=== PATIENT | female | born 1980 | race Caucasian/White ===

== ENCOUNTER 2017-02-11 06:11 | Inpatient (IN) | payer OTHER ==
[~2017-02-11] VITALS: Ht 161.3 cm; Wt 63.0 kg
[2017-02-11] MEDS ORDERED: Lactated Ringer's 1,000 ML IV PRN (06:39)
[2017-02-11] MEDS ORDERED: Oxytocin 10 Unit/mL Inj IM PRN (06:40)
[2017-02-11] MEDS ORDERED: Oxytocin 30 Units/500 mL LR 30 UNITS in IV Premix 1 EACH IV PRN (06:40)
[2017-02-11] MEDS ORDERED: Carboprost 250 mCg/mL Inj IM PRN (06:40)
[2017-02-11] MEDS ORDERED: Hemorrhage Kit, Post Partum XX ONE (06:40)
[2017-02-11] MEDS ORDERED: Sodium Chloride LOK Flush 10 mL Syringe IVFLUSH PRN ×2 (06:40→21:20)
[2017-02-11] MEDS ORDERED: Methylergonovine 0.2 mg/mL Inj IM PRN (06:40)
[2017-02-11] MEDS ORDERED: Ondansetron 2 mg/mL 2 mL Inj IVPUSH PRN ×2 (06:40→21:40)
[2017-02-11] MEDS ORDERED: fentaNYL-PF 50 mCg/mL 2 mL Inj IVPUSH PRN (06:40)
[2017-02-11] MEDS ORDERED: [UNRECOGNIZED DRUG - OTHER] (07:53)
[2017-02-11] MEDS ORDERED: PREN1TAB87 PO (07:53)
[2017-02-11 09:12] LABS: Mean Corpuscular Hemoglobin 30.7 pg (27.0-35.0); Mean Corpuscular Volume 88.8 fL (81-100)
--- NOTE | 2017-02-11 11:28 | HP ---
[address] [address] HISTORY AND PHYSICAL PATIENT: MARGARITA ALMAZAN : 1980 MR#: [id number] ADMIT: 02/11/2017 JOB ID: [id number] CHIEF COMPLAINT: Increasing contractions at term. HISTORY OF PRESENT ILLNESS: A 36-year-old, 1 para 0, with an EDC of February 08, 2017, based on a 10 week 2 day ultrasound done July 15, 2016. Presents at 40-3/7 weeks gestation with increasing contractions. History is obtained from the patient and her . She reports around two o'clock this morning she had some increased contractions when up to urinate around four o'clock. They promptly became stronger, occurring every 3-5 minutes and have persisted. She presented to the Center around 6 a.m., was found to be 4 cm, gotten in the Jacuzzi, has felt like contractions have let up a little bit, but is feeling no more in the past few minutes. Her has been tracking them. They are occurring every 3-4 minutes. She has had no bloody show. No mucus and no leakage of fluid. has been complicated only by Rh negative status and an echogenic focus in the right ventricle by ultrasound. ALLERGIES: None known. CURRENT MEDICATIONS: vitamins 1 tablet daily. HEALTHCARE MAINTENANCE: The patient had received a flu vaccine in July of this year, and a Tdap in December of this year. SOCIAL HISTORY: She is . Nonsmoker. Does not drink alcohol during . Has previously denied recreational drug use. Has worked as a virtual customer assistant. PAST GYNECOLOGIC HISTORY: 1, para 0. FAMILY HISTORY: Noncontributory for congenital or defects. PAST MEDICAL HISTORY: She has had an abnormal Pap in 2007, and a left elbow fracture as a child. She had wisdom tooth extraction in the past. LABORATORIES: Blood type O negative, rubella immune, serology nonreactive. Hepatitis B surface antigen, HIV test negative. Antibody screen negative at 27 weeks. Hematocrit 37.5 at 27 weeks. An A1c at the onset of was 5.1. Her gonorrhea and Chlamydia cultures were negative. Pap smear was normal as well. Urine culture showed no growth. A 27-week glucose tolerance test showed a fasting blood sugar 72, a 1 hour of 88, a 2 hour of 78. She declined risk testing. She is GBS negative, screened January 10, 2017. PHYSICAL EXAMINATION: She is afebrile. Blood pressure 101/63, pulse 68, at 8:13 this morning. She is a gravid woman, uncomfortable with contractions. Otherwise smiling in between. Vaginal exam is not repeated as she is in the tub, but was recently performed by nursing, showing her 4 cm dilated, 75% effaced, -3 station. heart [facility] shows a baseline in the 130s, with numerous accelerations, at least 15 beats by 15 seconds, and no concerning decelerations. There is excellent variability consistent with a category 1 tracing. Tocometer does not hand picker particularly regularly but seems to show jiik-so-[id number] contractions every 3-5 minutes. LABORATORY VALUES: Show white count 19.9, hematocrit 41.9, platelets 342. ASSESSMENT: 1. Early labor at term. 2. Group B Strep negative. 3. Blood type O negative. 4. Echogenic focus on ultrasounds. PLAN: The [facility]. Does not wish to have additional pain medication. She does request something for heartburn, and I have written for Tums and ranitidine. She would like to avoid interventions and so at present the plan is expectant management. If she continues to not make clinical progress, consider option of oxytocin and/or amniotomy. KEITH
[2017-02-11] MEDS ORDERED: Lactated Ringer's 500 ML IV ONE (21:38)
--- NOTE | 2017-02-11 21:38 | PCM.HPANE ---
Patient Data Date of Service: Feb 11, 2017 Surgeon Admitting Provider:Juanjose Pal MD Attending Provider:Juanjose Pal MD Primary Care Physician:Juanjose Pal MD Other Provider:Kayla Han Anesthesia Reason for Visit Term Labor TERM LABOR Ht/WT & BMI Body Mass Index Allergies Coded Allergies: No Known Allergies (Unverified , 02/11/17) Past Anesthesia History Anesthesia History: Denies:: Abnormal Airway Diabetes History Hx Diabetes?: No MRSA MRSA: No Medications Hypertension Medication: No Home Meds Incl Beta Leticia: No Reported Medications [antacid of choice] No Conflict Check PRN For Epigastric Distress 02/11/17 Vit W-Ca,Fe,FA(<1 mg) ( Vitamins)1 Each Tablet1 Each PO DAILY 02/11/17 History History of ENT Problems?: No HEENT History: Denies:: Abnormal Airway Denture Type: None Teeth Condition: Within Normal Limits Hx of Heart Problems?: No Cardiovascular History: Denies:: Peripheral Vascular Hx of Respiratory Problem?: No Respiratory History: Denies:: Asthma Hx Neurologic Problems?: No Neurological History: Denies:: Headaches Hx of GI Problems?: No Hx of Problems?: No HX of Peritoneal Dialysis: No Female Hx: Positive for:: Currently Hx Musculoskeletal Problems?: No Hx of Psycho/Social Problems?: No Hx Surgeries?: No Hx Any Other Health Problems?: No Smoking Status: Never Smoker Stop/Bang Treated for Sleep Apnea?: No Do You Have a CPAP Machine?: No S-Snoring: Do You Snore Loudly: No T-Tired: feel tired, fatigued: No O-Obsered: Observed not breath: No P-Blood Pressure: treated: No B- Body Mass Index > 35 kg/m2: No A- Age over 50: No N- Neck Large Circumference: No G- Gender Male: No [id number] Risk Assessment: Low Risk, <3 Yes Risk Assessment Category Category 1A: Patient has history of documented sleep apnea, and HAS NOT received any narcotic, sedative or anesthesia administration during this stay. Category 1B: Patient has history of documented sleep apnea, and HAS received any narcotic , sedative or anesthesia administration during this stay Category 2: Patient has SUSPECTED Obstructive Sleep Apnea, and HAS received any narcotic , sedative or anesthesia administration during this stay. Category 3: Patient has SUSPECTED Obstructive Sleep Apnea and HAS NOT received narcotic, sedative or anesthesia administration during this stay. Category 4: Outpatient in Procedural Areas with known sleep apnea or who screen positive for High Risk via the STOP/BANG questionnaire. Exam Exam General Appearance: Alert, Oriented X3 HEENT/AIRWAY: MP 1 Lungs: Clear to Auscultation Heart: Exam Unremarkable Meds/Labs/Diagnostics Admission Meds Current Medications Famotidine (Pepcid) 20 mg ONCE ONCE PO Last administered on 02/11/17t 10:43; Start 02/11/17 at 10:05; Stop 02/11/17 at 10:06; Status DC Labs Test 02/11/17 08:55 White Blood Count 19.9th/mm3 (3.8-10.1) Red Blood Count 4.72mil/mm3 (3.90-5.20) Hemoglobin 14.5g/dL (12.0-15.6) Hematocrit 41.9% (35.0-46.0) Mean Corpuscular Volume 88.8fL (81-100) Mean Corpuscular Hemoglobin 30.7pg (27.0-35.0) Mean Corpuscular Hemoglobin Concent 34.6% (32.0-37.0) Red Cell Distribution Width 13.3% (12.3-15.4) Platelet Count 342bil/L (150-400) Plan Impression Patient chart reviewed, patient interviewed and anesthestic plan with risks, benefits, and alternatives discussed, and informed consent obtained. NPO per Anesth. Guidelines: Yes ASA Physical Status: ASA1 Normal Healthy Anesthetic Plan: Epidural Bene/Risks/Altern/Consents: Yes HP Complete Prior to Induction: Yes Servando Nicole MD Feb 11, 2017 21:38
[2017-02-11] MEDS ORDERED: EPHEDrine Sulfate 50 mg/mL Inj IVPUSH PRN (21:40)
[2017-02-11] MEDS ORDERED: Atropine 1 mg/10 mL (Code) Syringe IVPUSH PRN (21:40)
--- NOTE | 2017-02-11 21:57 | PROG NOTE ---
[address] [address] PROGRESS NOTE PATIENT: MARGARITA ALMAZAN : 1980 MR#: [id number] ADMIT: 02/11/2017 JOB ID: [id number] DATE: 02/11/2017 PROGRESS NOTE: I returned around 9 p.m. and re-examined the patient. She is having what she reports are stronger contractions, although they are still fairly spaced out, about every 5-6 minutes. PHYSICAL EXAMINATION: Last vitals show a temperature of 98.1 Fahrenheit, heart rate 93, respirations 18, blood pressure 116/62, O2 saturation 99% on room air. She is a very tired-appearing laboring woman. Cervical examination shows her to be 6 cm, -1 station, 85% effaced, vertex position. Palpable but not bulging membranes noted. heart tracing shows a baseline in the 130s to 140s with continued accelerations, category 1 tracing. Tocometer shows contractions every 5-6 minutes, sometimes clustering more frequent. They palpate as moderate. ASSESSMENT: 1. Gravid, at term. 2. Group B Streptococcus negative. 3. Entering active labor. She has had a fairly slow prodromal pattern today with fairly infrequent contractions. However, she has dilated to 6 cm. PLAN: Discussed options. This patient reports she is really feeling exhausted, having been up since 2 o'clock this morning. After discussing risks and benefits and having time to evaluate options with her partner, she decided on an epidural. Anesthesia was contacted for epidural anesthesia. Discussed placing this and allowing her to rest three to four hours and, if not making further cervical change, augmenting with oxytocin. This was discussed with Dr. Mata, body shop floorperson for [employer]. The patient declines amniotomy and augmentation earlier today and continues to prefer to keep membranes intact as long as possible. If she makes clinical progress without augmentation, we will simply allow her to labor with the epidural. Plan, options, risks and benefits of each approach were reviewed with patient and her . KEITH
[2017-02-12] MEDS ORDERED: Sodium Chloride LOK Flush 10 mL Syringe IVFLUSH SCH (00:30)
[2017-02-12] MEDS ORDERED: Oxytocin 30 Units/500 mL LR 30 UNITS in IV Premix 1 EACH IV PRN ×2 (02:00→13:45)
[2017-02-12] MEDS: fentaNYL 2 mCg/mL-Bupiv 0.125% 100 ML EPIDURAL SCH ×2 (05:38→11:49)
[2017-02-12] MEDS: Lactated Ringer's 1,000 ML IV SCH ×2 (05:39→12:22)
[2017-02-12] MEDS ORDERED: Lactated Ringer's 1,000 ML IV SCH (13:44)
[2017-02-12] MEDS ORDERED: Oxytocin 10 Unit/mL Inj IM PRN (13:45)
[2017-02-12] MEDS ORDERED: Methylergonovine 0.2 mg/mL Inj IM PRN (13:45)
[2017-02-12] MEDS ORDERED: Hemorrhage Kit, Post Partum XX ONE (13:45)
[2017-02-12] MEDS ORDERED: Witch Hazel-Glycerin Pads TOPICAL PRN (13:45)
[2017-02-12] MEDS ORDERED: HYDROcodone-APAP 5-325 mg Tablet PO PRN (13:45)
[2017-02-12] MEDS ORDERED: Benzocaine (Dermoplast) 20% 60 Gm Spray TOPICAL PRN (13:45)
[2017-02-12] MEDS ORDERED: Carboprost 250 mCg/mL Inj IM PRN (13:45)
[2017-02-12] MEDS ORDERED: LANOlin HPA 7 Gm Ointment TOPICAL PRN (13:45)
--- NOTE | 2017-02-12 14:16 | OP ---
[address] [address] OPERATIVE REPORT PATIENT: MARGARITA ALMAZAN : 1980 MR#: [id number] ADMIT: 02/11/2017 JOB ID: [id number] DELIVERY NOTE: DATE OF DELIVERY: 02/12/2017 DELIVERY POSITION: IMELDA. ANESTHESIA: Epidural. APGARS: 8 and 9 DELIVERY WEIGHT: 2964 g (6 pounds 9 ounces) UMBILICAL CORD: Three-vessel cord normal length and appearance. PLACENTA: Normal appearance central cord insertion. No evidence of retained fragments. ESTIMATED BLOOD LOSS: 200 cc. LACERATIONS: First-degree perineal. COMPLICATIONS: See narrative below. The patient was found to be complete with increasing rectal pressure. Membranes were ruptured with return of clear fluid. Immediately there afterwards there was a heart rate deceleration which responded to resuscitative measures. The patient was allowed to have passive descent and then began pushing. Throughout pushing heart rate variables were noted, about hour 2 of pushing these seemed to be more prolonged and there was a question of whether or not there were late decelerations noted. As pushing progressed the patient did make descent of the head, however she is becoming more fatigued and the decelerations seen to be more repetitive. Discussed the option of a vacuum, at that point, the skull was +1 to +2 position the latter with pushing. I contacted Dr. Pool on-call for [employer] and asked her to come do a consultation. She discussed the option of a vacuum which, if unsuccessful, would then result in section. Patient strongly desired to avoid the latter. While all this discussion was occurring, patient was able to push the head completely down to +3 station. [employer] and Pediatrics was personally present in the room in anticipation of potential complications either during delivery or for the fetus afterwards. Head delivered. No nuchal cord was identified. Shoulders delivered without difficulty. was handed up to mother and nursing for additional stimulation, but almost immediately had cry and good tone and color. Cord was clamped after 2 minute delay. Cord blood collected and sent. Cord gas was not obtained as the infant was quite vigorous and had excellent Apgars. Placenta delivered spontaneously with gentle traction on the cord thereafter. Fundus is firm and bleeding slowed rapidly with IV oxytocin. Perineum was inspected and showed bilateral labial bruising and a first-degree perineal abrasion, not appearing to require repair. Her rectal exam after delivery showed intact sphincter tone. Sponge and needle counts are correct after delivery. Patient plans to breastfeed. She has excellent social support. I thanked Dr. Pool and Dr. Fountain for their presence during this prolonged pushing episode and higher complexity delivery. [facility] CENTERMauricio
[2017-02-13 07:14] LABS: Mean Corpuscular Hemoglobin 30.5 pg (27.0-35.0); Mean Corpuscular Volume 91.1 fL (81-100)
--- NOTE | 2017-02-13 07:59 | PCM.DIOB ---
Obstetrical Disch Instruction Date of Service: Feb 13, 2017 Dates of Hospitalization Date of Hospital Admission Feb 11, 2017 at 06:39 Providers Admitting Physician: Juanjose Pal MD Primary Care Physician: Juanjose Pal MD Attending Physician: Juanjose Pal MD Discharge Diagnosis Problems: (1) Encounter for full-term uncomplicated delivery Status: Acute ICD Code: O80 (2) Prolonged second stage of labor Status: Acute ICD Code: O63.1 Activity Discharge Activity-General: No restrictions Dressing and Incisional Care Hygiene: May shower Follow Up Plan Follow-up Provider (F9): Juanjose Pal MD Follow-up appointment: Weeks (6) Call your provider for: Fever or Chills, Shortness of breath, Heavy vaginal bleeding, Excessive constipation Juanjose Pal MD Feb 13, 2017 07:59
[2017-02-13] MEDS ORDERED: DOCU-41 PO (08:00)
[2017-02-13] MEDS ORDERED: IBUP-1827 PO (08:00)
--- NOTE | 2017-02-13 08:11 | DIS ---
[address] [address] DISCHARGE SUMMARY PATIENT: MARGARITA ALMAZAN : 1980 MR#: [id number] ADMIT: 02/11/2017 JOB ID: [id number] DIS: 02/13/2017 DISCHARGE DIAGNOSES: 1. Vaginal delivery, spontaneous, to a 2964 g viable female. 2. Prolonged second stage with pushing for about 3-1/2 hours with heart rate variable decelerations. 3. ultrasound showing right ventricle echogenic focus with no other abnormalities. 4. Blood type O negative. ALLERGIES: None known. DISCHARGE MEDICATIONS: 1. vitamins 1 tablet daily. 2. Ibuprofen 400-800 mg q.6 hours p.r.n. pain. 3. Docusate sodium 100 mg p.o. b.i.d. p.r.n. constipation. DISCHARGE INSTRUCTIONS: 1. Followup with Dr. Pal in six weeks. 2. Call for increased bleeding, fevers, breast tenderness, excess constipation or other problems 3. Activity ad papo. 4. Diet ad papo. HOSPITAL COURSE: The patient is a now 36-year-old 1, para 1, who presented at 40 and 3/7 weeks gestation at 4 cm dilation. She made very slow clinical progress but did continue to dilate. She received an epidural overnight and then was augmented with oxytocin due to slowing of cervical change at 8 cm. After rupture of membranes and patient was complete, heart rate decelerations were noted which responded to resuscitative measures. She pushed for 3-1/2 hours and due to continued heart rate decelerations, obstetrics was consulted for possible vacuum extraction. The patient was able to push the fetus down without this assistance and delivered a viable 6 pounds 9 ounce female in IMELDA position with Apgars of 8 and 9. patient is caring for her well. Her lochia is slowing. She does have a lot of perineal edema per her report but it is controlled with ice and ibuprofen. A first-degree perineal laceration was not repaired. Her hematocrit was 39.7, down from 41.9. The patient will be discharged home this afternoon. She is only using ibuprofen for pain and I will add docusate for constipation if needed. She will followup at six weeks, sooner if problems.
[2017-02-13 14:21] VITALS: BP 111/59; PULSE 70; RESP 16
== END 2017-02-13 16:10 | disposition home or self-care (01) | DRG 775 ==
LOC: FBCO 06:11 → FBC 06:39
PROVIDERS: ADMIT Family Medicine; ATTEND Family Medicine
PROC: 10E0XZZ Delivery of Products of Conception, External Approach (ICD-10-PCS; principal; 2017-02-12)
DX: O63.1 Prolonged second stage (of labor) (principal); Z3A.40 40 weeks gestation of pregnancy; Z37.0 Single live birth